=== PATIENT | female | born 1965 | race Caucasian/White ===

== ENCOUNTER 2016-05-23 13:46 | Emergency (ER) | payer OTHER ==
--- NOTE | ~2016-05-23 | EKG ---
PATIENT: CARMEN ALBERTS UNIT #: [id number] Ventricular Rate: 67 BPM Atrial Rate: 67 BPM P-R Interval: 200 ms QRS Duration: 76 ms Q-T Interval: 372 ms QTC Calculation(Bezet): 393 ms P Willow: 60 degrees Calculated R Willow: 62 degrees Calculated T Willow: 42 degrees Diagnosis Line: Normal sinus rhythm with sinus arrhythmia Diagnosis Line: Normal ECG Diagnosis Line: When compared with ECG of 05-MAR-2016 09:34, Diagnosis Line: No significant change was found Diagnosis Line: Confirmed by VADIM BORREGO MD ([id number]) on 05/23/2016 Diagnosis Line: 6:27:45 PM INTERPRETING MD: ELMO DO
--- NOTE | ~2016-05-23 | CT71 ---
[facility] A Service of [facility] RADIOLOGY TEXT RESULTS PATIENT: CARMEN ALBERTS LOCATION: [facility] : 61 UNIT #: [id number] AGE: [address]: Rafael Madera MD SEX: F ORDER DR: [id number] [facility] [address] [place], [place] [address] [id number] MR#: [id number] Acc #: [id number] NAME: CARMEN ALBERTS : 1965 SEX: F STUDY DATE/TIME: 05/23/2016 14:32 UNIT: [facility] ROOM: STUDY DESCRIPTION: CT Head Wo Contrast Attending Physician: Rafael Madera M.D. Ordering Physician: Rafael Madera M.D. Primary Care Physician: Samantha Finn M.D. MEDICAL IMAGING REPORT This report is preliminary unless electronic signature is present EXAM CT scan head without contrast 05/23/2016 INDICATIONS Off balance, neck pain, symptoms started today. COMPARISON STUDIES 02/27/2009 TECHNIQUE Axial noncontrast images were obtained from the skull base to the vertex. FINDINGS Ventricular size and configuration are normal. There is no evidence of acute infarct or hemorrhage. There are no extra-axial fluid collections. No mass lesion or mass effect is seen. There are no skull fractures. IMPRESSION Normal noncontrast head CT. Dictated by... Ricardo Fatima M.D. THIS IS AN ELECTRONICALLY VERIFIED REPORT Ricardo Fatima M.D. at 05/23/2016 4:36 PM Boby TD: 05/23/2016 16:30 JOB #: [id number] MEDICAL IMAGING REPORT COPY
[2016-05-23 14:39] LABS: BASOPHIL# 0.1 X10e3 (0-0.3); BASOPHIL% 0.9 % (0-2.5); EOSINOPHIL# 0.3 X10e3 (0-0.7); EOSINOPHIL% 5.2 % (0.0-7.0); HEMATOCRIT 43.5 % (35.0-45.0); HEMOGLOBIN 14.6 gm/dL (12.0-16.0); LYMPHOCYTE# 2.4 X10e3 (1.0-3.5); MEAN CELL VOLUME 94.7 FL (83-96); MEAN CORPUSCULAR HEMOGLOBIN 31.9 PG (28-34); MEAN CORPUSCULAR HGB CONC 33.7 g/dL (30-36); MEAN PLATELET VOLUME 8.4 FL (6.5-11.5); MONOCYTE# 0.4 X10e3 (0-1.0); MONOCYTE% 7.7 % (3.0-12.0); NEUTROPHIL# 2.5 X10e3 (1.5-7.1); NEUTROPHIL% 44.2 % (40-75); PLATELET COUNT 202 X10e3 (140-420); RED BLOOD COUNT 4.59 X10e (3.90-5.30); RED CELL DISTRIBUTION WIDTH 12.7 % (11.0-15.5); WHITE BLOOD COUNT 5.8 X10e3 (4.0-10.5)
[2016-05-23 14:49] LABS: DIFF IND NO
[2016-05-23 15:03] LABS: ALBUMIN SERUM 4.1 g/dL (3.5-5.0); ALKALINE PHOSPHATASE 62 U/L (32-92); ALT (SGPT) 27 U/L (10-40); AST (SGOT) 21 U/L (10-42); BILIRUBIN,TOTAL 0.3 mg/dL (0.2-2.0); BLOOD UREA NITROGEN 9 mg/dL (9-23); BUN/CREATININE RATIO 11.25; CALCIUM SERUM 8.9 mg/dL (8.4-10.2); CARBON DIOXIDE 27 mmol/L (22-31); CHLORIDE 105 mmol/L (100-111); CREATININE SERUM 0.8 mg/dL (0.6-1.4); GLOM FILT RATE Estimated ABOVE60 mL/min (>60); GLUCOSE FASTING 100 mg/dL (70-110); POTASSIUM 3.9 mmol/L (3.5-5.1); PROTEIN TOTAL SERUM 7.1 g/dL (6.0-8.3); SODIUM 139 mmol/L (135-145)
[2016-05-23 15:04] LABS: BILIRUBIN, DIRECT <0.1 mg/dL (0.0-0.2); BILIRUBIN,INDIRECT 0.2 mg/dL (0.0-0.9)
== END 2016-05-23 16:44 | disposition home or self-care (01) ==
LOC: CED 13:46
PROVIDERS: Emergency Medicine
DX: M54.2 Cervicalgia (principal); R42 Dizziness and giddiness; F32.9 Major depressive disorder, single episode, unspecified; F17.210 Nicotine dependence, cigarettes, uncomplicated; Z88.0 Allergy status to penicillin; Z88.2 Allergy status to sulfonamides; Z90.710 Acquired absence of both cervix and uterus; Z98.890 Other specified postprocedural states; Z88.1 Allergy status to other antibiotic agents
CPT/HCPCS: 70450; 80048; 80076; 85025; 93005; 99284